=== PATIENT | male | born 1945 | race African-American/Black ===

== ENCOUNTER 2017-03-27 19:33 | Emergency (ER) | payer MEDICARE, MEDICAID ==
[2017-03-27 20:05] LABS: Blood, Urine Large (Negative); Glucose, Urine (Dipstick) Negative (Negative); Leukocyte Negative (Negative); Nitrite Negative (Negative); Protein, Urine (Dipstick) > or equal to 300 mg/dL (Neg-Trace); Specific Gravity, Urine 1.025 (1.005-1.030); pH, Urine 5.5 (5.0-9.0)
[2017-03-27 20:25] LABS: Bilirubin Negative (Negative); Clarity Cloudy (Clear)
[2017-03-27 20:29] LABS: Bacteria/HPF 1+ HPF (None Seen); Hyaline Casts/LPF 0-3 HYALINE CAST LPF (0-3 Hyaline); RBC/HPF GREATER THAN 50-TNTC HPF (0-3); Squamous Epithelial 0-3 HPF (0-3); WBC/HPF 0-3 HPF (0-3); Yeast-All Forms 1+ HPF (None Seen)
[2017-03-27] MEDS ORDERED: Cephalexin 250 MG CAP ONE (20:49)
--- NOTE | 2017-03-27 22:44 | RAD ---
LUMBAR SPINE THREE VIEWS 03/27/17 No prior films were available for comparison. 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 Large bridging anterior osteophytes are seen be tween L2 and L3, as well as L3 and L4. Facet arthritis becomes more prominent as one travels inferio rly in the lumbar spine. There is no disc space narrowing or signs of recent fracture. Faint calcifi cation of the abdominal aorta is present. It is difficult to assess the SI joints in this patient. IMPRESSION: Severe arthritic changes as noted. MRI would be best at determining any possibility of neural imping ement. POS: HOME
== END 2017-03-27 21:21 | disposition home or self-care (01) ==
LOC: BURERS 19:33
DX: R31.9 Hematuria, unspecified (principal); I25.2 Old myocardial infarction; E78.5 Hyperlipidemia, unspecified; I10 Essential (primary) hypertension; Z87.891 Personal history of nicotine dependence; Z79.82 Long term (current) use of aspirin; Z79.899 Other long term (current) drug therapy; Z79.02 Long term (current) use of antithrombotics/antiplatelets
CPT/HCPCS: 72100; 81003; 81015

== ENCOUNTER 2018-06-02 18:59 | Emergency (ER) | payer MEDICAID, MEDICARE ==
[2018-06-02] MEDS ORDERED: HYDROcodone/Acetaminophen 10/325 mg Tablet ONE (19:16)
[2018-06-02] MEDS ORDERED: Ibuprofen 800 MG TAB ONE (19:16)
== END 2018-06-02 19:30 | disposition home or self-care (01) ==
LOC: BURERS 18:59
DX: M10.9 Gout, unspecified (principal); E78.5 Hyperlipidemia, unspecified; I10 Essential (primary) hypertension; I25.2 Old myocardial infarction; Z87.891 Personal history of nicotine dependence; Z79.82 Long term (current) use of aspirin; Z79.899 Other long term (current) drug therapy
CPT/HCPCS: 99283

== ENCOUNTER 2018-12-21 22:08 | Emergency (ER) | payer MEDICARE | END 2018-12-21 22:31 | disposition home or self-care (01) | LOC: BURERS 22:08 | DX: S83.91XA Sprain of unspecified site of right knee, initial encounter (principal); M10.9 Gout, unspecified; I25.2 Old myocardial infarction; E78.5 Hyperlipidemia, unspecified; I10 Essential (primary) hypertension; Z87.891 Personal history of nicotine dependence; Z79.899 Other long term (current) drug therapy; Z79.82 Long term (current) use of aspirin; X50.1XXA Overexertion from prolonged static or awkward postures, initial encounter | CPT/HCPCS: 99281 ==

== ENCOUNTER 2019-05-25 14:41 | Outpatient (CLI) | payer MEDICARE ==
--- NOTE | 2019-05-25 18:57 | RAD ---
RIGHT KNEE FOUR VIEWS: Date: 05-25-19 FINDINGS: There is slight joint space narrowing and some mild irregularities of the articular surfaces. Some sm all osteophytes are present. Findings are in keeping with degenerative change and perhaps prior injur y. There is some cortical prominence in the upper tibia medially which does not appear acute. I do no t see a joint effusion. IMPRESSION: Old changes but no acute findings. POS: HOME
== END 2019-05-25 14:42 | disposition home or self-care (01) ==
LOC: BURRAD 14:41
PROVIDERS: ATTEND Family Medicine
DX: M23.91 Unspecified internal derangement of right knee (principal)

== ENCOUNTER 2019-07-14 20:11 | Emergency (ER) | payer MEDICARE ==
[2019-07-14] MEDS ORDERED: Ibuprofen 200 MG TAB ONE (20:29)
[2019-07-14] MEDS ORDERED: Cyclobenzaprine 10 MG TAB ONE (20:29)
== END 2019-07-14 20:30 | disposition home or self-care (01) ==
LOC: BURERS 20:11
DX: S16.1XXA Strain of muscle, fascia and tendon at neck level, initial encounter (principal); M10.9 Gout, unspecified; I25.2 Old myocardial infarction; E78.5 Hyperlipidemia, unspecified; E78.00 Pure hypercholesterolemia, unspecified; I10 Essential (primary) hypertension; Z79.899 Other long term (current) drug therapy; Z79.82 Long term (current) use of aspirin; X58.XXXA Exposure to other specified factors, initial encounter
CPT/HCPCS: 99283

== ENCOUNTER 2020-07-10 18:02 | Emergency (ER) | payer MEDICARE ==
[~2020-07-10 18:02] MED LIST: Iopamidol 370 76% 100 ML VIAL ONE
[2020-07-10 18:55] LABS: ALT (SGPT) 14 U/L (8-55); AST (SGOT) 15 U/L (5-34); Albumin 3.6 g/dL (3.4-4.8); Alkaline Phosphatase 73 U/L (40-110); Anion Gap 15 mmol/L (10-20); BUN (Urea Nitrogen) 23 mg/dL (8.4-25.7); Bilirubin, Total 0.8 mg/dL (0.2-1.2); Calc. Creatinine Clearance 0 mL/min (70-130); Calcium 8.6 mg/dL (7.8-10.44); Carbon Dioxide 22 mmol/L (23-31); Chloride 104 mmol/L (98-107); Globulin 3.5 g/dL (2.4-3.5); Glucose 121 mg/dL (83-110); Potassium 4.3 mmol/L (3.5-5.1); Protein, Total 7.1 g/dL (5.8-8.1); Sodium 137 mmol/L (136-145)
[2020-07-10 18:56] LABS: Band 3 % (5-11); Eosinophils 9 % (0-10); Hemoglobin 10.9 g/dL (14.0-18.0); Lymphocytes 9 % (21-51); MDiff Complete? YES; Mean Corpuscular HGB CONC 31.2 g/dL (32.0-36.0); Mean Corpuscular Hemoglobin 29.3 pg (27.0-31.0); Mean Corpuscular Volume 93.9 fL (78.0-98.0); Mean Platelet Volume 8.3 fL (7.4-10.4); Monocytes 4 % (0-10); Neutrophil 75 % (42-75); Platelet Count 83 thou/uL (130-400); Platelet Morphology Comment Appears Decreased; RBC Distribution Width 13.7 % (11.5-14.5); White Blood Cell (WBC) Count 5.1 thou/uL (4.8-10.8)
[2020-07-10] MEDS ORDERED: Aspirin Chewable 81 MG TAB ONE (19:27)
[2020-07-10] MEDS ORDERED: Acetaminophen 500 MG TAB ONE (19:27)
[2020-07-10] MEDS ORDERED: Enoxaparin Sodium 100 MG/ML SYRINGE ONE (19:27)
[2020-07-10] MEDS ORDERED: Dexamethasone 4 mg/ml Vial ONE (19:27)
--- NOTE | 2020-07-10 20:57 | CT ---
CT angiogram chest with IV contrast and 3-D imaging HISTORY: Chest pain. Dyspnea. FINDINGS: There is good contrast opacification of the central pulmonary arteries and thoracic aorta w ith bovine origin of the great vessels at the aortic arch. Mid to peripheral pulmonary arteries are predominantly obscured by motion artifact. Ill-defined patchy predominantly peripheral areas of infiltrate involving each lung lobe. Mild emphys ematous bullae at the periphery of the upper lobes. No pleural fluid or pneumothorax. No mediastinal adenopathy. IMPRESSION : No evidence of pulmonary embolus. Multifocal COVID pneumonitis. Emphysema.
--- NOTE | 2020-07-11 06:58 | RAD ---
Chest one view HISTORY: Dyspnea. COVID exposure. COMPARISON: 02/25/2015. FINDINGS: Cardiac silhouette is magnified by projection and upper limits of normal in size. Pulmonary vasculature is predominantly obscured by patchy ill-defined areas of groundglass infiltrate throughout each lung. No lobar consolidation or evidence of pneumothorax. IMPRESSION : Multifocal pneumonitis, consistent with COVID infection.
== END 2020-07-10 21:35 | disposition short-term general hospital (02) ==
LOC: BURERS 18:02
DX: U07.1 COVID-19 (principal); J12.89 Other viral pneumonia; D64.9 Anemia, unspecified; R09.02 Hypoxemia; Z79.899 Other long term (current) drug therapy; Z79.82 Long term (current) use of aspirin; I25.2 Old myocardial infarction; E78.5 Hyperlipidemia, unspecified; E78.00 Pure hypercholesterolemia, unspecified; I10 Essential (primary) hypertension; Z87.891 Personal history of nicotine dependence
CPT/HCPCS: 36415; 71045; 71275; 80053; 83605; 83880; 84484; 85025; 85379; 87040; 93005; 94760; 96372; 96374; J1100; J1650; Q9967

== ENCOUNTER 2021-10-11 06:19 | Emergency (ER) | payer MEDICARE | END 2021-10-11 06:54 | disposition home or self-care (01) | LOC: BURERS 06:19 | DX: H65.91 Unspecified nonsuppurative otitis media, right ear (principal); I10 Essential (primary) hypertension; M10.9 Gout, unspecified; I25.2 Old myocardial infarction; E78.3 Hyperchylomicronemia; Z87.891 Personal history of nicotine dependence | CPT/HCPCS: 99282 ==

== ENCOUNTER 2022-08-09 00:02 | Emergency (ER) | payer MEDICARE, OTHER ==
[2022-08-09] MEDS ORDERED: cloNIDine 0.1 MG TAB ONE (00:44)
[2022-08-09] MEDS ORDERED: Meclizine HCl 25 MG TAB ONE (00:44)
== END 2022-08-09 01:18 | disposition home or self-care (01) ==
LOC: BURERS 00:02
DX: H81.10 Benign paroxysmal vertigo, unspecified ear (principal); E78.00 Pure hypercholesterolemia, unspecified; I10 Essential (primary) hypertension; Z79.82 Long term (current) use of aspirin; Z79.899 Other long term (current) drug therapy; Z87.891 Personal history of nicotine dependence
CPT/HCPCS: 93005

== ENCOUNTER 2022-09-27 03:09 | Emergency (ER) | payer OTHER ==
[2022-09-27] MEDS ORDERED: Aspirin Chewable 81 MG TAB ONE ×2 (03:29→06:03)
[2022-09-27] MEDS ORDERED: Nitroglycerin 0.4 MG TAB 1 EACH ONE (03:29)
[2022-09-27] MEDS ORDERED: hydrALAZINE 20 MG/ML VIAL ONE ×2 (03:34→06:03)
[2022-09-27] MEDS ORDERED: Ondansetron PF 4 MG/2 ML Vial ONE (03:34)
[2022-09-27 03:52] LABS: #Eosinphils 0.3 thou/uL (0.0-0.7); #Lymphocytes 2.3 thou/uL (1.20-3.40); #Monocytes 0.5 thou/uL (0.11-0.59); #Neutrophils 2.8 thou/uL (1.40-6.50); %Basophils 0.8 % (0.0-1.0); %Eosinophils 5.2 % (0.0-10.0); %Lymphocytes 38.7 % (21.0-51.0); %Monocytes 8.5 % (0.0-10.0); %Neutrophils 46.8 % (42.0-75.0); Hemoglobin 11.8 g/dL (14.0-18.0); Mean Corpuscular HGB CONC 34.1 g/dL (32.0-36.0); Mean Corpuscular Volume 93.8 fl (78.0-98.0); Mean Platelet Volume 10.4 fL (7.4-10.4); Platelet Count 127 10x3/uL (130-400); RBC Distribution Width 12.7 % (11.5-14.5); Red Blood Cell (RBC) Count 3.69 mill/uL (4.70-6.10)
[2022-09-27 03:57] LABS: ALT (SGPT) 9 U/L (8-55); AST (SGOT) 15 U/L (5-34); Albumin 3.8 g/dL (3.4-4.8); Alkaline Phosphatase 87 U/L (40-110); Anion Gap 13 mmol/L (10-20); BUN (Urea Nitrogen) 21 mg/dL (8.4-25.7); Bilirubin, Total 0.4 mg/dL (0.2-1.2); Calc. Creatinine Clearance 0 mL/min (70-130); Calcium 8.8 mg/dL (7.8-10.44); Carbon Dioxide 21 mmol/L (23-31); Chloride 112 mmol/L (98-107); Estimated GFR 53; Globulin 3.1 g/dL (2.4-3.5); Glucose 109 mg/dL (83-110); Lipase 26 U/L (8-78); Potassium 3.6 mmol/L (3.5-5.1); Protein, Total 6.9 g/dL (5.8-8.1); Sodium 142 mmol/L (136-145)
[2022-09-27 04:13] LABS: CKMB 1.3 ng/mL (0-6.6)
[2022-09-27] MEDS ORDERED: Furosemide 40 MG/4 ML VIAL ONE (06:03)
[2022-09-27] MEDS ORDERED: Iopamidol 370 76% 100 ML VIAL ONE (11:06)
== END 2022-09-27 08:39 | disposition short-term general hospital (02) ==
LOC: BURERS 03:09
DX: I11.0 Hypertensive heart disease with heart failure (principal); I50.9 Heart failure, unspecified; E78.00 Pure hypercholesterolemia, unspecified; Z79.899 Other long term (current) drug therapy; Z79.82 Long term (current) use of aspirin; Z87.891 Personal history of nicotine dependence
CPT/HCPCS: 71045; 74177; 80053; 82553; 83690; 83880; 84484; 85025; 93005; 96374; 96375; 96376; 99285; J0360; J1940; J2405; Q9967

== ENCOUNTER 2025-05-19 10:02 | Emergency (ER) | payer MEDICARE ==
[2025-05-19 10:40] LABS: #Basophils 0.1 thou/uL (0.0-0.2); #Eosinophils 0.4 thou/uL (0.0-0.7); #Lymphocytes 1.6 thou/uL (1.20-3.40); #Monocytes 0.6 thou/uL (0.11-0.59); #Neutrophils 3.7 thou/uL (1.40-6.50); %Basophils 2.1 % (0.0-1.0); %Eosinophils 6.4 % (0.0-10.0); %Lymphocytes 25.1 % (21.0-51.0); %Monocytes 9.1 % (0.0-10.0); %Neutrophils 57.4 % (42.0-75.0); Hematocrit 24.6 % (42.0-52.0); Hemoglobin 8.6 g/dL (14.0-18.0); Mean Corpuscular Hemoglobin 31.6 pg (27.0-31.0); Mean Corpuscular Volume 89.8 fl (78.0-98.0); Platelet Count 135 10x3/uL (130-400); Red Blood Cell (RBC) Count 2.74 mill/uL (4.70-6.10); White Blood Cell (WBC) Count 6.4 10x3/uL (4.8-10.8)
[2025-05-19 10:41] LABS: ALT (SGPT) 13 U/L (Less than 45); AST (SGOT) 27 U/L (11-34); Albumin 3.6 g/dL (3.1-4.5); Alkaline Phosphatase 85 U/L (40-110); Anion Gap 16 mmol/L (10-20); BUN (Urea Nitrogen) 35 mg/dL (8.4-25.7); Bilirubin, Total 0.7 mg/dL (0.3-1.2); Calc. Creatinine Clearance 0 mL/min (70-130); Calcium 8.9 mg/dL (7.8-10.44); Carbon Dioxide 16 mmol/L (23-31); Chloride 115 mmol/L (98-107); Globulin 3.3 g/dL (2.4-3.5); Glucose 94 mg/dL (83-110); Potassium 5.4 mmol/L (3.5-5.1); Sodium 142 mmol/L (136-145)
[2025-05-19 10:43] LABS: Troponin I 0.024 ng/mL (< 0.028)
[2025-05-19] MEDS ORDERED: Furosemide 40 MG (4 mL) VIAL ONE (11:15)
== END 2025-05-19 17:30 | disposition short-term general hospital (02) ==
LOC: BURERS 10:02
DX: J44.1 Chronic obstructive pulmonary disease with (acute) exacerbation (principal); R09.02 Hypoxemia; I13.0 Hypertensive heart and chronic kidney disease with heart failure and stage 1 through stage 4 chronic kidney disease, or unspecified chronic kidney disease; N18.9 Chronic kidney disease, unspecified; I50.9 Heart failure, unspecified; I25.10 Atherosclerotic heart disease of native coronary artery without angina pectoris; I25.2 Old myocardial infarction; Z95.5 Presence of coronary angioplasty implant and graft; Z87.891 Personal history of nicotine dependence
CPT/HCPCS: 36415; 71045; 80053; 83880; 84484; 85025; 93005; 96374; 96375; J1940; J2919

== ENCOUNTER 2025-06-22 11:11 | Emergency (ER) | payer MEDICARE ==
[2025-06-22 12:04] LABS: #Basophils 0.0 thou/uL (0.0-0.2); #Eosinophils 0.2 thou/uL (0.0-0.7); #Lymphocytes 1.5 thou/uL (1.20-3.40); #Monocytes 0.6 thou/uL (0.11-0.59); #Neutrophils 2.4 thou/uL (1.40-6.50); %Basophils 0.8 % (0.0-1.0); %Eosinophils 3.8 % (0.0-10.0); %Lymphocytes 31.2 % (21.0-51.0); %Monocytes 12.0 % (0.0-10.0); %Neutrophils 52.2 % (42.0-75.0); Hematocrit 26.7 % (42.0-52.0); Hemoglobin 8.3 g/dL (14.0-18.0); Mean Corpuscular Hemoglobin 31.6 pg (27.0-31.0); Mean Corpuscular Volume 102.0 fl (78.0-98.0); Platelet Count 163 10x3/uL (130-400); Red Blood Cell (RBC) Count 2.62 mill/uL (4.70-6.10); White Blood Cell (WBC) Count 4.7 10x3/uL (4.8-10.8)
[2025-06-22 12:25] LABS: Troponin I 0.033 ng/mL (< 0.028)
[2025-06-22 12:26] LABS: ALT (SGPT) 16 U/L (Less than 45); AST (SGOT) 19 U/L (11-34); Albumin 3.2 g/dL (3.1-4.5); Alkaline Phosphatase 66 U/L (40-110); Anion Gap 14 mmol/L (10-20); BUN (Urea Nitrogen) 39 mg/dL (8.4-25.7); Bilirubin, Total 0.4 mg/dL (0.3-1.2); Calc. Creatinine Clearance 0 mL/min (70-130); Calcium 8.4 mg/dL (7.8-10.44); Carbon Dioxide 16 mmol/L (23-31); Chloride 118 mmol/L (98-107); Globulin 3.0 g/dL (2.4-3.5); Glucose 88 mg/dL (83-110); Potassium 5.8 mmol/L (3.5-5.1); Sodium 142 mmol/L (136-145)
== END 2025-06-22 14:24 | disposition home or self-care (01) ==
LOC: BURERS 11:11
DX: R55 Syncope and collapse (principal); I13.0 Hypertensive heart and chronic kidney disease with heart failure and stage 1 through stage 4 chronic kidney disease, or unspecified chronic kidney disease; I50.9 Heart failure, unspecified; N18.9 Chronic kidney disease, unspecified; I25.2 Old myocardial infarction; Z87.891 Personal history of nicotine dependence; Z79.899 Other long term (current) drug therapy
CPT/HCPCS: 36415; 71045; 80053; 83880; 84484; 85025; 93005